=== PATIENT | female | born 1995 | race Caucasian/White ===

== ENCOUNTER 2022-06-27 18:11 | Inpatient (IN) ==
--- NOTE | 2022-06-27 18:52 | History & Physical Report ---
Date of Service June 27, 2022 Assessment & Plan (1) 39 weeks gestation of : (2) Gestational hypertension: (3) Obesity complicating : (4) Unfavorable cervix in term : Plan admit, iv, labs. shaver ripening balloon and start pitocin. fhts categ 1. lfts noted, repeat in 6hr about 2am. other labs reviewed, urine prot/cr ratio pending. pt and partner aware of dx and recommendations to move toward delivery. they agree and deny ?s. History of Present Illness Chief Complaint: repeat bp check Primary Care Provider: NO PCP 26yo at 39 6/7 wks yoshi presents to L&D for planned repeat bp about 4-6hr from office bp that was elevated. She denies complaints, no storm, visual change, no ruq pain, no epig pain. No worsening swelling. PNC c/b 1. obesity PNL rhpos, ri, gbs neg Allergies Allergy/AdvReac Type Severity Reaction Status Date / Time No Known Allergies Allergy Verified 06/27/22 11:23 Home Medications Medication Instructions Recorded Confirmed Type multivitamin 1 tab PO DAILY 08/01/21 06/27/22 History Patient History Medical History (Updated 06/27/22 @ 21:21 by Rosanne Gillespie MD, FACOG) No pertinent past medical history SAB (spontaneous ) Varicella vaccination Surgical History No pertinent past surgical history Family History (Updated 11/18/21 @ 09:58 by Haleigh Song) Father Hypertension Denies family history of Ovarian cancer Clotting disorder Breast cancer Colorectal cancer Uterine cancer Social History (Updated 11/18/21 @ 09:56 by Haleigh Song) Smoking Status: Never smoker Second Hand Exposure: No; Hx Alcohol Use: No Hx Substance Use: No Preferred Language: [employer] Required: No Beliefs That Will Affect Care: None marital status: marital status details: Jorden Smith (26) [phone] Current Living Situation: Spouse Current Living Situation Comment: lives with spouse, dogs current occupational status: employed 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[employer] Other Information That Helps Us Care for You: No Feels Safe at Home: Yes Safety Concerns: Feels Safe At This Time Assistive Devices: None Review of Systems as per Subjective / HPI Physical Exam Constitutional: WD/WN, vitals as above Respiratory: normal respiratory effort, lungs clear to auscultation Cardiovascular: Rate/Rhythm: regular rate and regular rhythm Gastrointestinal (Abdomen): soft gravid nt efw 8-9# Musculoskeletal: no edema nontender calves Neurologic: grossly normal Psychiatric: A+Ox3, euthymic affect Genitourinary: Manual OB Exam: + cervical dilation (1), + cervical effacement 50% and + station + 2 OB Exam Monitor Tracing: + external FHT monitor used, + external uterine monitor used, + category I and + normal FHT variability PROCEDURE: sse cx visualized, grasped on ant lip with ring forcep, shaver through os and balloon inflated with 40cc sterile water. Spec removed, shaver taped to leg. pt amy well. Results & Data ([facility]) Vital Signs (Past 12 Hours) Vital Signs Pulse BP 06/27/22 18:18 105 H 154/76 H Coding Level of Care Code None Diagnoses 39 weeks gestation of Z3A.39 Gestational hypertension O13.9 Obesity complicating O99.210 Unfavorable cervix in term O34.40 CPT Codes Misx Procedure Codes - 95939 Placement of cervical dilator: 22810 Placement of cervical dilator ([id number])
[2022-06-27 20:02] LABS: Basophils # (auto) 0.02 K/uL (0-0.2); Basophils % (auto) 0.2 %; Eosinophils # (auto) 0.08 K/uL (0-0.50); Eosinophils % (auto) 0.7 %; Hematocrit (blood only) 37.5 % (34.1-44.9); Immature Granulocytes # (auto) 0.03 K/uL (0.00-0.02); Immature Granulocytes % (auto) 0.3 %; Lymphocytes # (auto) 2.12 K/uL (1.2-3.4); Lymphocytes % (auto) 18.4 %; Mean Corpuscular Hemoglobin 31.5 pg (25.0-34.0); Mean Corpuscular Hgb Conc 34.7 g/dL (32.0-36.0); Mean Corpuscular Volume 90.8 fL (80.0-100.0); Mean Platelet Volume 11.1 fL (9.4-12.3); Monocytes # (auto) 0.67 K/uL (0.24-0.82); Monocytes % (auto) 5.8 %; Neutrophils % (auto) 74.6 %; Platelet Count 296 K/uL (130-400); RDW Coefficient of Variation 12.5 % (11.5-14.5); RDW Standard Deviation 41.2 fL (36.4-46.3); Red Blood Count 4.13 M/uL (3.93-5.22); White Blood Count 11.52 K/ul (4.8-10.8)
[2022-06-27 20:26] LABS: Albumin Globulin Ratio 0.8 (0.9-2); Albumin Level 3.2 gm/dl (3.4-5.0); BUN Creatinine Ratio 13.5 (10-20); Bilirubin,Total 0.4 mg/dl (0.2-1.0); Calcium 9.5 mg/dl (8.5-10.1); Creatinine Clr Calc Pharmacy 153.7 ml/min; Est GFR (African American) 128.7 ml/min; Potassium 3.7 mmol/L (3.5-5.1); Total Protein 7.2 gm/dl (6.0-8.3)
[2022-06-27] MEDS ORDERED: OXYTOCIN 30 UNITS/500 ML BAG IV PRN ×2 (20:36→20:37)
[2022-06-27] MEDS ORDERED: LIDOCAINE 1% LOCAL 20 ML VIAL INFIL PRN (20:36)
[2022-06-27] MEDS: LACTATED RINGER'S 1,000 ML IV PRN (21:23)
[2022-06-27 21:26] LABS: Creatinine Urine Random 176.6 mg/dl; Protein Creatinine Ratio Urine 0.1 (0-0.2); Total Protein Urine Random 16.1 mg/dl (0-11.9)
[2022-06-28 02:02] LABS: Albumin Level 3.4 gm/dl (3.4-5.0); Bilirubin Direct 0.1 mg/dl (0-0.2); Bilirubin,Total 0.4 mg/dl (0.2-1.0); Total Protein 7.1 gm/dl (6.0-8.3)
[2022-06-28 03:45] LABS: Albumin Level 3.2 gm/dl (3.4-5.0); Bilirubin Direct 0.1 mg/dl (0-0.2); Bilirubin,Total 0.5 mg/dl (0.2-1.0); Total Protein 6.9 gm/dl (6.0-8.3)
[2022-06-28] MEDS: LACTATED RINGER'S 1,000 ML IV PRN ×2 (06:14→09:50)
--- NOTE | 2022-06-28 08:23 | Labor Progress Brief Note ---
Date of Service June 28, 2022 On Pitocin for induction for hypertension artificial rupture of membranes this morning for clear fluid 3 to 4 cm patient tolerated well follow-up closely Assessment & Plan Admission and Anticipated Discharge Date Admission Date: June 27, 2022 Results & Data ([facility]) Vital Signs (Past 12 Hours) Vital Signs Temp Pulse Resp BP 06/28/22 07:23 97.9 F 20 06/28/22 08:14 81 136/87 06/28/22 07:44 79 118/84 06/28/22 07:16 91 H 118/84 06/28/22 06:44 88 132/87 06/28/22 06:14 97 H 131/85 06/28/22 05:44 85 131/79 06/28/22 05:15 68 131/81 06/28/22 04:45 86 130/87 06/28/22 04:14 80 133/79 06/28/22 03:45 83 125/80 06/28/22 03:14 93 H 130/87 06/28/22 03:00 18 06/28/22 03:00 97.9 F 18 06/28/22 02:44 92 H 135/87 06/28/22 02:14 78 132/82 06/28/22 01:44 68 139/86 06/28/22 01:14 86 134/87 06/28/22 00:44 86 124/84 06/28/22 00:14 81 127/80 06/27/22 23:44 94 H 134/91 06/27/22 23:14 97.9 F 90 18 132/82 06/27/22 22:44 87 128/77 06/27/22 22:15 101 H 126/80 06/27/22 21:44 90 134/81 06/27/22 21:14 92 H 135/90 06/27/22 20:34 104 H 122/87 Coding Level of Care Code None
[2022-06-28] MEDS ORDERED: ePHEDrine sulfate 50 MG/ML AMP ONE ×2 (09:11→13:22)
[2022-06-28] MEDS ORDERED: SODIUM CHLORIDE 0.9% INJ 10 ML VIAL ONE (09:12)
[2022-06-28] MEDS ORDERED: LIDOCAINE 2%/EPINEPHRINE 1:200,000 20 ML SDV ONE (09:12)
[2022-06-28] MEDS ORDERED: fentaNYL citrate 100 MCG/2 ML VIAL ONE (09:12)
[2022-06-28] MEDS ORDERED: BUPIVACAINE 0.25% 30 ML VIAL ONE (09:12)
[2022-06-28] MEDS ORDERED: fentaNYL 2MCG/ML ROPIVACAINE 1.25MG/ML 100 ML BAG EPI ONE (09:13)
[2022-06-28] MEDS ORDERED: NALOXONE HCL 0.4 MG/1 ML VIAL/CARP IV PRN ×2 (10:47→17:12)
[2022-06-28] MEDS ORDERED: NALBUPHINE HCL INJ 10 MG/ML AMP IV PRN ×2 (10:47→17:12)
[2022-06-28] MEDS ORDERED: NALOXONE HCL 1 MG in SODIUM CHLORIDE 0.9% 1000ML 1,000 ML IV PRN ×2 (10:47→17:12)
[2022-06-28] MEDS ORDERED: diphenhydrAMINE 50 MG/ML VIAL IV PRN ×3 (10:47→17:12)
[2022-06-28] MEDS ORDERED: ePHEDrine sulfate 50 MG/ML AMP IV PRN ×2 (10:47→17:12)
[2022-06-28] MEDS ORDERED: PROMETHAZINE HCL 25 MG in SODIUM CHLORIDE 0.9% 50 ML IV PRN ×3 (10:47→17:12)
[2022-06-28] MEDS ORDERED: ONDANSETRON INJ 2 MG/ML 2 ML VIAL IV PRN ×3 (10:47→17:12)
--- NOTE | 2022-06-28 10:47 | Anesthesiology Consultation ---
Date of Service June 28, 2022 Assessment & Plan Chart Review Chart Review: Patient NOT seen in Pre Admission Testing and Acceptable Risk for Labor Epidural Consults Requested none ASA ASA2 Proposed Anesthesia Anesthesia Type: Labor Epidural Risk / Benefits Reviewed With: PT / POA / Parent / Guardian, Accepts Plan and Informed Consent Obtained History Height/Weight Height: 5 ft 4 in Weight: 131.088 kg Allergies Allergy/AdvReac Type Severity Reaction Status Date / Time No Known Allergies Allergy Verified 06/27/22 11:23 Medications Home Medications Medication Instructions Recorded Confirmed Last Taken multivitamin 1 tab PO DAILY 08/01/21 06/27/22 06/26/22 Active Medications Generic Name Dose Route Start Last Admin Trade Name Freq PRN Reason Stop Dose Admin Lactated Ringer's 1,000 mls @ 125 mls/hr 06/27/22 20:36 06/28/22 09:51 Lr IV 06/29/22 20:35 125 mls/hr .Q8H PRN Infusion L&D Protocol Protocol Oxytocin 30 units in 500 mls @ 13 mls/hr 06/27/22 20:37 06/28/22 10:20 Pitocin IV 06/29/22 20:36 0.78 units/hr .Q24H PRN 13 mls/hr Labor Induction/Augmentation Titration Protocol 0.78 UNITS/HR NPO Date Last Intake of Fluids: 06/27/22 Time Last Intake of Fluids: 22:00 Date Last Intake of Solids: 06/27/22 Time Last Intake of Solids: 22:00 Past Medical History Medical History (Updated 06/27/22 @ 21:21 by Rosanne Gillespie MD, FACOG) No pertinent past medical history SAB (spontaneous ) Varicella vaccination Exercise / Class Metabolic Activity II 4-5 Yardwork/Stairs/Walk up hill Past Family History Family History (Updated 11/18/21 @ 09:58 by Haleigh Song) Father Hypertension Denies family history of Ovarian cancer Clotting disorder Breast cancer Colorectal cancer Uterine cancer Past Surgical History Surgical History No pertinent past surgical history Past Anesthesia History No Hx of Anesthesia Complications and No Family Hx of Anesthesia Complications History of PONV No Hx of PONV and No Hx of Motion Sickness Social History Smoking Status: Never smoker Hx Alcohol Use: No Hx Substance Use: No substance use type: does not use Review of Systems Constitutional: as per Subjective / HPI Ear, Nose, Mouth, Throat: as per Subjective / HPI Cardiovascular: as per Subjective / HPI Gastrointestinal: as per Subjective / HPI Genitourinary (Female): as per Subjective / HPI Musculoskeletal: as per Subjective / HPI Integumentary: as per Subjective / HPI Neurologic: as per Subjective / HPI Psychiatric: as per Subjective / HPI Endocrine: as per Subjective / HPI Hematologic / Lymphatic: as per Subjective / HPI Allergy / Immunological: as per Subjective / HPI Physical Exam Vital Signs Last Vital Signs Temp 36.6 C 06/28/22 07:23 Pulse 103 H 06/28/22 10:39 Resp 20 06/28/22 07:23 BP 123/82 06/28/22 10:39 Pulse Ox 96 06/28/22 10:39 Constitutional + acute distress (labor pain) ENMT Mouth: no TMJ abnormality Thyromental Distance: > or= 3.5 Finger Breadths Mallampati Class: II Neck normal visual inspection Respiratory normal respiratory effort Cardiovascular Rate/Rhythm: regular rhythm and + tachycardic Musculoskeletal Spine: normal cervical ROM Neurologic moves all extremities Psychiatric Orientation: alert and oriented x 3 Testing Laboratory Results 06/27/22 19:49 06/27/22 19:49 Blood Type AB Positive 06/27/22 19:49 Antibody Screen NEGATIVE 06/27/22 19:49
--- NOTE | 2022-06-28 11:57 | Obstetrical Progress Note ---
Date of Service June 28, 2022 Recurrent late D cells on Pitocin we have been trying various measures including repositioning and a small fluid bolus her pressures are low. An IUPC has been placed and contractions are definitely adequate her cervix is 4 cm 90% -2 we will follow closely discussed with the patient and her partner the possibility of delivery and what this would entail if the recurrent D cells do not improve Assessment & Plan Admission and Anticipated Discharge Date Admission Date: June 27, 2022 Results & Data ([facility]) Vital Signs (Past 12 Hours) Vital Signs Temp Pulse Resp BP Pulse Ox 06/28/22 11:30 98.8 F 06/28/22 09:30 98.2 F 06/28/22 07:23 97.9 F 20 06/28/22 11:54 89 127/77 99 06/28/22 11:49 93 H 100 06/28/22 11:48 91 H 91 06/28/22 11:44 62 96 06/28/22 11:42 61 96/51 L 06/28/22 11:39 61 97 06/28/22 11:34 60 97 06/28/22 11:29 63 98 06/28/22 11:10 20 06/28/22 11:10 20 06/28/22 10:10 20 06/28/22 10:10 20 06/28/22 10:25 20 06/28/22 10:25 20 06/28/22 10:40 20 06/28/22 10:40 20 06/28/22 11:24 60 93/55 L 97 06/28/22 11:19 61 98 06/28/22 11:14 64 98 06/28/22 11:09 99 06/28/22 11:09 71 06/28/22 11:09 69 105/59 L 06/28/22 11:04 75 97 06/28/22 10:59 82 95 06/28/22 10:55 95 H 20 94 06/28/22 10:54 92 H 118/70 97 06/28/22 10:49 96 06/28/22 10:49 77 06/28/22 10:49 101 H 94 06/28/22 10:44 84 96 06/28/22 10:39 103 H 123/82 96 06/28/22 10:34 96 H 99 06/28/22 10:29 80 98 06/28/22 10:24 86 98 06/28/22 10:23 90 124/76 06/28/22 10:19 97 H 99 06/28/22 10:16 80 131/73 06/28/22 10:14 81 133/75 99 06/28/22 10:12 92 H 128/67 06/28/22 10:11 105 H 126/67 06/28/22 10:09 86 97 06/28/22 10:08 86 127/74 06/28/22 10:07 81 127/77 06/28/22 10:04 82 136/89 100 06/28/22 09:59 84 98 06/28/22 10:00 82 128/82 06/28/22 09:52 83 150/92 H 06/28/22 09:45 75 124/70 06/28/22 09:14 68 124/67 06/28/22 08:44 90 128/83 06/28/22 08:14 81 136/87 06/28/22 07:44 79 118/84 06/28/22 07:16 91 H 118/84 06/28/22 06:44 88 132/87 06/28/22 06:14 97 H 131/85 06/28/22 05:44 85 131/79 06/28/22 05:15 68 131/81 06/28/22 04:45 86 130/87 06/28/22 04:14 80 133/79 06/28/22 03:45 83 125/80 06/28/22 03:14 93 H 130/87 06/28/22 03:00 18 06/28/22 03:00 97.9 F 18 06/28/22 02:44 92 H 135/87 06/28/22 02:14 78 132/82 06/28/22 01:44 68 139/86 06/28/22 01:14 86 134/87 06/28/22 00:44 86 124/84 06/28/22 00:14 81 127/80 PG Care Time/CCT Total # of Minutes Spent Total Time Spent with Patient: Total time spent is greater than 50% in coordination of care (as documented) at patient's floor/unit and/or counseling patient: Coding Level of Care Code None
--- NOTE | 2022-06-28 12:25 | Labor Progress Brief Note ---
Date of Service June 28, 2022 Recurrent late decelerations despite maneuvers to alleviate including placement of IUPC to optimize contractions position changes and small fluid boluses at this stage the patient is still 4 cm I have advised recommendation for due to the recurrent late decelerations discussed the timing of the cells may reflect some placental dysfunction discussed we could continue to try however I am somewhat worried with the lack of progress and additionally the tracing being nonoptimal the patient and her partner agree with as the best plan of action I discussed the increased risk of infection if she is in labor or other risk discussed as well section. The patient was counseled to the nature of the procedure including alternatives such as labor. Risks were discussed including bleeding infection injury to bowel bladder ureter vessels and even baby. Deep Vein thrombosis, pulmonary embolus discussed. B reakdown of incision reviewed. Deep vein thrombosis pulmonary embolus hernia and failure of the incision to heal were discussed Patient verbalized understanding of this and was given ample time to ask questions Assessment & Plan Admission and Anticipated Discharge Date Admission Date: June 27, 2022 Results & Data ([facility]) Vital Signs (Past 12 Hours) Vital Signs Temp Pulse Resp BP Pulse Ox 06/28/22 11:30 98.8 F 06/28/22 09:30 98.2 F 06/28/22 07:23 97.9 F 20 06/28/22 12:20 89 93 06/28/22 12:19 86 100 06/28/22 12:14 71 100 06/28/22 12:09 68 99 06/28/22 12:10 73 123/76 06/28/22 12:04 72 100 06/28/22 11:59 80 97 06/28/22 11:40 20 06/28/22 11:40 20 06/28/22 11:25 20 06/28/22 11:25 20 06/28/22 11:54 89 127/77 99 06/28/22 11:49 93 H 100 06/28/22 11:48 91 H 91 06/28/22 11:44 62 96 06/28/22 11:42 61 96/51 L 06/28/22 11:39 61 97 06/28/22 11:34 60 97 06/28/22 11:29 63 98 06/28/22 11:10 20 06/28/22 11:10 20 06/28/22 10:10 20 06/28/22 10:10 20 06/28/22 10:25 20 06/28/22 10:25 20 06/28/22 10:40 20 06/28/22 10:40 20 06/28/22 11:24 60 93/55 L 97 06/28/22 11:19 61 98 06/28/22 11:14 64 98 06/28/22 11:09 99 06/28/22 11:09 71 06/28/22 11:09 69 105/59 L 06/28/22 11:04 75 97 06/28/22 10:59 82 95 06/28/22 10:55 95 H 20 94 06/28/22 10:54 92 H 118/70 97 06/28/22 10:49 96 06/28/22 10:49 77 06/28/22 10:49 101 H 94 06/28/22 10:44 84 96 06/28/22 10:39 103 H 123/82 96 06/28/22 10:34 96 H 99 06/28/22 10:29 80 98 06/28/22 10:24 86 98 06/28/22 10:23 90 124/76 06/28/22 10:19 97 H 99 06/28/22 10:16 80 131/73 06/28/22 10:14 81 133/75 99 06/28/22 10:12 92 H 128/67 06/28/22 10:11 105 H 126/67 06/28/22 10:09 86 97 06/28/22 10:08 86 127/74 06/28/22 10:07 81 127/77 06/28/22 10:04 82 136/89 100 06/28/22 09:59 84 98 06/28/22 10:00 82 128/82 06/28/22 09:52 83 150/92 H 06/28/22 09:45 75 124/70 06/28/22 09:14 68 124/67 06/28/22 08:44 90 128/83 06/28/22 08:14 81 136/87 06/28/22 07:44 79 118/84 06/28/22 07:16 91 H 118/84 06/28/22 06:44 88 132/87 06/28/22 06:14 97 H 131/85 06/28/22 05:44 85 131/79 06/28/22 05:15 68 131/81 06/28/22 04:45 86 130/87 06/28/22 04:14 80 133/79 06/28/22 03:45 83 125/80 06/28/22 03:14 93 H 130/87 06/28/22 03:00 18 06/28/22 03:00 97.9 F 18 06/28/22 02:44 92 H 135/87 06/28/22 02:14 78 132/82 06/28/22 01:44 68 139/86 06/28/22 01:14 86 134/87 06/28/22 00:44 86 124/84 Coding Level of Care Code None
[2022-06-28] MEDS ORDERED: CITRIC ACID/SODIUM CITRATE 15 ML UDC PO STA (12:38)
[2022-06-28] MEDS ORDERED: MoRPHine SULFATE PF 1 MG/ML 10 ML AMP/VIAL ONE (13:22)
[2022-06-28] MEDS ORDERED: ONDANSETRON INJ 2 MG/ML 2 ML VIAL ONE ×2 (13:22→13:47)
[2022-06-28] MEDS ORDERED: PHENYLEPHRINE 100MCG/ML 5ML SYR ONE (13:50)
--- NOTE | 2022-06-28 14:07 | Operative Report ---
PG Post Operative Report Pre & Post Diagnosis Operation Date: 06/28/22 13:00 Post-Op Diagnosis: Same: Delivery of live I identified the patient and participated in the time-out.: Yes Procedure Operation Date: 06/28/22 13:00 <No data on this case meets the specified criteria> Surgeon Desiree Farah MD, FACOG Crusher [employer] Equipment Operator Dr. Gillespie Estimated Blood Loss 600 Findings Consistent with Post-Op Diagnosis Specimens Cord blood cord gases Description of Procedure Regional anesthetic had been given by anesthesia patient was prepped and draped with a leftward tilt preoperative antibiotics had been given in appropriate timing by anesthesiology. Once the prep was allowed to fully dry timeout was performed. Pickups with teeth were used to test the incision area was found to be adequate for incision as the patient did not feel sharp pain. Scalpel was used to make a Pfannenstiel incision on the lower abdomen. We then cut through the subcutaneous fat down to the level of the anterior rectus sheath fascia this was cut in the midline and then extended laterally with the curved Faulkner scissors. At this stage we then placed 2 Brenden clamps on the anterior aspect of the fascia. Using the curved Faulkner's we are able to dissect the fascia superiorly away from the rectus muscles. Care was taken to maintain hemostasis. Brenden clamps were then placed to the inferior aspect of the anterior sheath of the fascia. Fascia was then dissected away from the rectus muscles inferiorly towards the pubic bone. A Brenden was then placed in the midline both inferiorly and superiorly. This was to allow exposure by retraction rectus muscles were in the midline with were then able to cut through the peritoneum and then enter the peritoneal cavity. Opening was enlarged to allow exposure of the peritoneal cavity both superiorly and inferiorly. Once adequate space was obtained a bladder retractor was placed to expose the lower segment Metzenbaums were used to dissect the bladder flap inferiorly away from the uterus. This was done sharply bladder retractor was then repositioned to expose the lower segment of the uterus Fresh scalpel was used to make a low transverse incision on the uterus. Uterus was then entered bluntly with the operators finger, membranes ruptured and the opening was enlarged using the operators fingers bluntly pulling superiorly and inferiorly to allow exposure. Baby was delivered by first flexion of the head elevation of the head out of the pelvis and then pressure by the contact lens assistant on the maternal abdomen. Baby's head was then delivered mouth and then nares were suctioned and then using gentle traction the baby was fully delivered. Live vigorous infant. Fluid was clear cord clamped and cut cord gases obtained cord blood obtained baby handed to pediatrics. Placenta removed was removed with traction we ensure the entire placenta was removed with a moist lap sponge into the uterus Uterus was then exteriorized. IV Pitocin had been started by anesthesia tone improved there were no extensions the uterus was then closed using 0 Monocryl in a 2 layer closure the first layer closed in a running locked fashion from left to right and then a second closure from left to right in a running nonlocked fashion. At this stage hemostasis was excellent. Uterus was placed back in the peritoneal cavity with suction irrigation out and inspection of the uterus at this stage revealed excellent hemostasis. It should be noted I put a [id number] in the left angle of the incision as it was some oozing and this improved it as well as a [id number]-fo-[id number] in the central part of the incision after these suture placements hemostasis was excellent Retractors were removed urine color was clear at this stage of the case we inspected the rectus muscles they were hemostatic fascia was closed with 0 Vicryl subcutaneous fat was irrigated and closed with 3-0 Vicryl skin closed with 4-0 subcuticular Monocryl I attest to the content of the Intraoperative Record and any orders documented therein. Any exceptions are noted below. OB Procedure Charges 81664
[2022-06-28] MEDS ORDERED: BENZOCAINE 20% AER SPR 82.5 GM CAN EXT PRN (14:53)
[2022-06-28] MEDS ORDERED: KETOROLAC 30 MG/ML VIAL IV PRN ×2 (14:53→17:12)
[2022-06-28] MEDS ORDERED: HYDROCORTISONE ACETATE 25 MG SUPP PR PRN (14:53)
[2022-06-28] MEDS ORDERED: DIPHTHERIA/TETANUS/PERTUSSIS 0.5 ML SYR/VIAL IM ONE (14:53)
[2022-06-28] MEDS ORDERED: SENNA 8.6 MG TAB PO PRN (14:53)
[2022-06-28] MEDS ORDERED: LACTATED RINGER'S 1,000 ML IV SCH (14:53)
[2022-06-28] MEDS ORDERED: MAGNESIUM HYDROXIDE SUSP 30 ML UDC PO PRN (14:53)
[2022-06-28] MEDS ORDERED: diphenhydrAMINE Capsule 25 MG CAP PO PRN ×2 (14:53→17:12)
--- NOTE | 2022-06-28 15:10 | Anesthesiology Progress Note ---
Date of Service June 28, 2022 Anesthesia Post Procedure Vital Signs Vital Signs: Temp Pulse Resp BP Pulse Ox 06/28/22 14:32 20 06/28/22 14:22 36.4 C L 20 06/28/22 12:55 20 06/28/22 12:40 20 06/28/22 12:25 20 06/28/22 12:10 20 06/28/22 11:55 20 06/28/22 11:30 37.1 C 06/28/22 09:30 36.8 C 06/28/22 07:23 36.6 C 20 06/27/22 19:14 36.9 C 85 18 158/93 H 06/28/22 15:05 102 H 98 06/28/22 15:02 100 H 124/60 06/28/22 15:00 99 H 98 06/28/22 14:55 89 100 06/28/22 14:50 94 H 99 06/28/22 14:45 94 H 99 06/28/22 14:44 88 121/68 06/28/22 14:40 89 98 06/28/22 14:35 84 98 06/28/22 14:33 88 114/53 L 06/28/22 14:30 79 97 06/28/22 14:25 81 98 06/28/22 14:22 82 111/52 L 06/28/22 14:20 75 97 06/28/22 13:09 82 99 06/28/22 13:10 94 H 131/78 06/28/22 13:04 84 99 06/28/22 12:59 78 98 06/28/22 12:55 102 H 134/84 06/28/22 12:54 101 H 96 06/28/22 12:49 88 100 06/28/22 12:44 72 100 06/28/22 12:39 73 99 06/28/22 12:40 81 128/82 06/28/22 12:34 71 100 06/28/22 12:29 82 98 06/28/22 12:25 74 116/66 06/28/22 12:24 70 99 06/28/22 12:20 89 93 06/28/22 12:19 86 100 06/28/22 12:14 71 100 06/28/22 12:09 68 99 06/28/22 12:10 73 123/76 06/28/22 12:04 72 100 06/28/22 11:59 80 97 06/28/22 11:40 20 06/28/22 11:40 20 06/28/22 11:25 20 06/28/22 11:25 20 06/28/22 11:54 89 127/77 99 06/28/22 11:49 93 H 100 06/28/22 11:48 91 H 91 06/28/22 11:44 62 96 06/28/22 11:42 61 96/51 L 06/28/22 11:39 61 97 06/28/22 11:34 60 97 06/28/22 11:29 63 98 06/28/22 11:10 20 06/28/22 11:10 20 06/28/22 10:10 20 06/28/22 10:10 20 06/28/22 10:25 20 06/28/22 10:25 20 06/28/22 10:40 20 06/28/22 10:40 20 06/28/22 11:24 60 93/55 L 97 06/28/22 11:19 61 98 06/28/22 11:14 64 98 06/28/22 11:09 99 06/28/22 11:09 71 06/28/22 11:09 69 105/59 L 06/28/22 11:04 75 97 06/28/22 10:59 82 95 06/28/22 10:55 95 H 20 94 06/28/22 10:54 92 H 118/70 97 06/28/22 10:49 96 06/28/22 10:49 77 06/28/22 10:49 101 H 94 06/28/22 10:44 84 96 06/28/22 10:39 103 H 123/82 96 06/28/22 10:34 96 H 99 06/28/22 10:29 80 98 06/28/22 10:24 86 98 06/28/22 10:23 90 124/76 06/28/22 10:19 97 H 99 06/28/22 10:16 80 131/73 06/28/22 10:14 81 133/75 99 06/28/22 10:12 92 H 128/67 06/28/22 10:11 105 H 126/67 06/28/22 10:09 86 97 06/28/22 10:08 86 127/74 06/28/22 10:07 81 127/77 06/28/22 10:04 82 136/89 100 06/28/22 09:59 84 98 06/28/22 10:00 82 128/82 06/28/22 09:52 83 150/92 H 06/28/22 09:45 75 124/70 06/28/22 09:14 68 124/67 06/28/22 08:44 90 128/83 06/28/22 08:14 81 136/87 06/28/22 07:44 79 118/84 06/28/22 07:16 91 H 118/84 06/28/22 06:44 88 132/87 06/28/22 06:14 97 H 131/85 06/28/22 05:44 85 131/79 06/28/22 05:15 68 131/81 06/28/22 04:45 86 130/87 06/28/22 04:14 80 133/79 06/28/22 03:45 83 125/80 06/28/22 03:14 93 H 130/87 06/28/22 03:00 18 06/28/22 03:00 36.6 C 18 06/28/22 02:44 92 H 135/87 06/28/22 02:14 78 132/82 06/28/22 01:44 68 139/86 06/28/22 01:14 86 134/87 06/28/22 00:44 86 124/84 06/28/22 00:14 81 127/80 06/27/22 23:44 94 H 134/91 06/27/22 23:14 36.6 C 90 18 132/82 06/27/22 22:44 87 128/77 06/27/22 22:15 101 H 126/80 06/27/22 21:44 90 134/81 06/27/22 21:14 92 H 135/90 06/27/22 20:34 104 H 122/87 06/27/22 20:19 96 H 131/86 06/27/22 20:04 96 H 135/81 06/27/22 19:49 101 H 130/88 06/27/22 19:34 106 H 134/80 06/27/22 19:06 36.9 C 85 18 158/93 H 06/27/22 18:49 100 H 133/86 06/27/22 18:18 105 H 154/76 H Pain Intensity Bilateral Abdomen: Pain Intensity: 1 Transfer of Care Handoff Completed per policy Notes Mental Status: alert / awake / arousable and participated in evaluation Nausea / Vomiting: adequately controlled Pain: adequately controlled Airway Patency, RR, SpO2: stable & adequate BP & HR: stable & adequate Hydration State: stable & adequate Neuraxial Anesthesia: was administered and sensory block is resolving Anesthetic Complications: no major complications apparent and Pt Satisfied with anesthetic care
--- NOTE | 2022-06-28 15:13 | Anesthesia Procedure Note ---
Date of Service June 28, 2022 Anesthesia Post Epidural Note Vital Signs Vital Signs: Temp Pulse Resp BP Pulse Ox 36.4 C L 93 H 20 124/60 98 06/28/22 14:22 06/28/22 15:10 06/28/22 14:32 06/28/22 15:02 06/28/22 15:10 Pain Intensity Bilateral Abdomen: Pain Intensity: 1 Notes Mental Status: alert / awake / arousable Nausea / Vomiting: adequately controlled Pain: adequately controlled Airway Patency, RR, SpO2: stable & adequate BP & HR: stable & adequate Hydration State: stable & adequate Neuraxial Anesthesia: was administered and sensory block is resolving Anesthetic Complications: no major complications apparent and Pt Satisfied with anesthetic care Epidural: Removed without complications and With tip intact
[2022-06-28] MEDS: OXYTOCIN 20 UNITS in LACTATED RINGER'S 1,000 ML IV SCH (16:54)
[2022-06-28] MEDS ORDERED: NALOXONE HCL 0.08 MG in SYRINGE 1.8 ML IV PRN (17:12)
[2022-06-28] MEDS ORDERED: LACTATED RINGER'S 500 ML IV PRN (17:12)
[2022-06-28] MEDS ORDERED: HYDROmorphone INJ 0.5 MG/0.5 ML SYR IV PRN (17:12)
[2022-06-28] MEDS ORDERED: MEPERIDINE HCL 25 MG/ML CARP/VIAL IV PRN (17:12)
[2022-06-28] MEDS ORDERED: MoRPHine SULFATE PF 1 MG/ML 10 ML AMP/VIAL INT SPINAL ONE (17:12)
[2022-06-28] MEDS ORDERED: SODIUM CHLORIDE 0.9% 1000ML 1,000 ML IV SCH (17:15)
[2022-06-28] MEDS ORDERED: NO NARCOTICS OR SEDATIVES SCH (17:15)
[2022-06-28] MEDS ORDERED: DC INTRASPINAL MORPHINE SCH (17:15)
[2022-06-28 19:52] LABS: Base Excess Cord Venous Blood -0.4 mEq/L (-7.7-1.9); Cord Venous Blood HCO3 26 mmol/L (18.4-26.8); Cord Venous Blood PCO2 48 mmHg (30.4-57.2); Cord Venous Blood PO2 21 mmHg (14.1-43.3); Cord Venous Blood pH 7.34 (7.20-7.44); O2 Saturation Cord Venous Bld < 60.0 % (<68)
[2022-06-28 19:55] LABS: Base Excess Cord Arterial Bld -0.3 mEq/L (-9-1.8); CO2 Cord Arterial Blood 61 mmHg (39.1-73.5); HCO3 Cord Arterial Blood 28 mmol/L (19.7-28.5); Oxygen Sat Cord Arterial Blood < 60.0 % (<60); PO2 Cord Arterial Blood 6 mmHg (4.1-31.7); pH Cord Arterial Blood 7.27 (7.1-7.38)
[2022-06-28] MEDS: SIMETHICONE 80 MG CHEW PO SCH (20:45)
[2022-06-28] MEDS: DOCUSATE SODIUM 100 MG CAP PO SCH (20:45)
[2022-06-29] MEDS: OXYTOCIN 20 UNITS in LACTATED RINGER'S 1,000 ML IV SCH (01:09)
[2022-06-29 06:42] LABS: Basophils # (auto) 0.05 K/uL (0-0.2); Basophils % (auto) 0.4 %; Eosinophils # (auto) 0.04 K/uL (0-0.50); Eosinophils % (auto) 0.3 %; Hematocrit (blood only) 31.1 % (34.1-44.9); Hemoglobin 10.6 g/dl (12.0-16.0); Immature Granulocytes # (auto) 0.07 K/uL (0.00-0.02); Immature Granulocytes % (auto) 0.5 %; Lymphocytes # (auto) 2.64 K/uL (1.2-3.4); Lymphocytes % (auto) 19.6 %; Mean Corpuscular Hemoglobin 31.5 pg (25.0-34.0); Mean Corpuscular Hgb Conc 34.1 g/dL (32.0-36.0); Mean Corpuscular Volume 92.3 fL (80.0-100.0); Mean Platelet Volume 11.2 fL (9.4-12.3); Monocytes # (auto) 0.82 K/uL (0.24-0.82); Monocytes % (auto) 6.1 %; Neutrophils # (auto) 9.82 K/uL (1.4-6.5); Neutrophils % (auto) 73.1 %; Platelet Count 227 K/uL (130-400); RDW Coefficient of Variation 12.7 % (11.5-14.5); RDW Standard Deviation 42.5 fL (36.4-46.3); Red Blood Count 3.37 M/uL (3.93-5.22); White Blood Count 13.44 K/ul (4.8-10.8)
[2022-06-29] MEDS: SIMETHICONE 80 MG CHEW PO SCH ×5 (07:22→21:04)
--- NOTE | 2022-06-29 08:28 | Obstetrical Progress Note ---
Date of Service June 29, 2022 Assessment & Plan (1) Gestational hypertension: Postop day #1 her blood pressures are stable her platelets are stable her hemoglobin is stable the patient is ambulating and she is doing well incision is examined is clear dry and intact she has no extremity pain we will continue current care Subjective Ambulation: ambulating normally Voiding: no voiding problems Passing Gas:: Yes Diet Tolerance:: regular diet Constitutional: + as per Subjective / HPI Physical Exam Constitutional WD/WN, vitals as above well developed and well nourished Respiratory normal respiratory effort, lungs clear to auscultation normal respiratory effort Cardiovascular RRR, no murmur, no edema Gastrointestinal (Abdomen) normal bowel sounds, soft, nontender, no hepatosplenomegaly Results & Data ([facility]) Vital Signs (Past 12 Hours) Vital Signs Temp Pulse Resp BP Pulse Ox O2 Del Method 06/29/22 06:20 18 96 06/29/22 05:20 18 96 06/29/22 04:00 18 98 06/29/22 03:15 18 96 06/29/22 04:00 98.2 F 80 18 109/65 98 Room Air 06/29/22 02:10 18 94 06/29/22 01:20 18 98 06/29/22 00:10 18 99 06/28/22 23:30 96 H 06/29/22 00:10 98.6 F 77 18 105/70 99 Room Air 06/28/22 22:20 18 93 06/28/22 21:25 18 96
[2022-06-29] MEDS: FERROUS SULFATE 325 MG TAB PO SCH (08:58)
[2022-06-29] MEDS: PRENATAL VITAMIN 1 TAB PO SCH (08:58)
[2022-06-29] MEDS: DOCUSATE SODIUM 100 MG CAP PO SCH ×2 (08:58→21:04)
[2022-06-29] MEDS: IBUPROFEN 600 MG TAB PO PRN ×2 (10:33→17:14)
[2022-06-29] MEDS ORDERED: diphenhydrAMINE 50 MG/ML VIAL IV PRN (11:14)
[2022-06-29] MEDS ORDERED: diphenhydrAMINE Capsule 25 MG CAP PO PRN (11:14)
[2022-06-29] MEDS ORDERED: ONDANSETRON INJ 2 MG/ML 2 ML VIAL IV PRN (11:14)
[2022-06-29] MEDS: oxyCODONE/ACETAMINOPHEN 5mg/325mg TAB PO PRN (19:16)
[2022-06-29] MEDS ORDERED: bisacodyL 5 MG TABEC PO SCH (20:00)
[2022-06-30] MEDS: oxyCODONE/ACETAMINOPHEN 5mg/325mg TAB PO PRN ×2 (05:43→13:49)
[2022-06-30] MEDS: IBUPROFEN 600 MG TAB PO PRN ×2 (05:44→13:49)
--- NOTE | 2022-06-30 05:48 | Obstetrical Progress Note ---
Date of Service June 30, 2022 Assessment & Plan (1) 39 weeks gestation of : (2) Gestational hypertension: Plan s/p POD#2: Vital signs reviewed and WNL, Tmax 37.1 AB+, GBS negative, Rubella immune Encourage ambulation Continue regular diet, treat pain as needed Encourage Discussed discharge plan, D/C today Plan to have incision check/bandage removal in office this thursday Admission and Anticipated Discharge Date Admission Date: June 27, 2022 Supervising Physician Co-Signing Physician Notes Resident Physician Supervision Note: I was present with Dr. Figueroa during the history and exam. I discussed the case with the resident and agree with the findings and plan as documented in the note. Any exceptions or clarifications are listed here: [None] Documented By: Desiree Farah MD, FACOG Subjective Jeanne is a 26 y/o female who is POD #2 following delivery at 40 weeks. Her was complicated by gestational hypertension. She reports feeling well overall this morning. Denies abdominal cramping and pain well managed on analgesics. Voiding without issue. Tolerating meals overnight and able to ambulate some. Endorses passing gas and no bowel movement yet. Has some persistent lochia with improvement this morning. Currently breast feeding. Review of Systems Constitutional: no fever, no chills and no sweats Respiratory: no cough, no dyspnea and no wheezing Cardiovascular: no chest pain, no palpitations and no calf pain Genitourinary: no dysuria Neurologic: no headache(s) Physical Exam Constitutional: WD/WN, vitals as above no acute distress Respiratory: no respiratory distress Auscultation: lungs clear to auscultation bilaterally; no rales, no rhonchi and no wheezes Cardiovascular: RRR, no murmur, no edema Extremities: no calf tenderness and no edema Negative Ramón's sign bilaterally. Gastrointestinal (Abdomen): Inspection/Auscultation: normal bowel sounds Genitourinary: Uterine fundus firm, palpable below the umbilicus. Incision site covered with bandage. Results & Data ([facility]) Vital Signs (Past 12 Hours) Vital Signs Temp Pulse Resp BP Pulse Ox O2 Del Method 06/29/22 23:20 36.9 C 80 18 104/68 06/29/22 19:00 Room Air 06/29/22 19:00 36.9 C 80 18 102/68 98 Room Air Resident Activity Tracking Resident Involvement: Resident Care Provided Care Provided: OB Delivery
[2022-06-30 07:29] LABS: Hematocrit (blood only) 32.9 % (34.1-44.9); Hemoglobin 11.1 g/dl (12.0-16.0)
[2022-06-30] MEDS: FERROUS SULFATE 325 MG TAB PO SCH (07:54)
[2022-06-30] MEDS: PRENATAL VITAMIN 1 TAB PO SCH (07:55)
[2022-06-30] MEDS: SIMETHICONE 80 MG CHEW PO SCH (07:55)
[2022-06-30] MEDS: DOCUSATE SODIUM 100 MG CAP PO SCH (07:55)
[2022-06-30] MEDS ORDERED: bisacodyL 10 MG SUPP PR PRN (14:03)
--- NOTE | 2022-07-01 07:47 | Discharge Summary ---
Date of Service July 01, 2022 Admission HPI Per Admitting Provider 26yo at 39 6/7 wks yoshi presents to L&D for planned repeat bp about 4-6hr from office bp that was elevated. She denies complaints, no storm, visual change, no ruq pain, no epig pain. No worsening swelling. PNC c/b 1. obesity PNL rhpos, ri, gbs neg Admission Exam (Per Admitting) Constitutional WD/WN, vitals as above well developed and well nourished Respiratory normal respiratory effort, lungs clear to auscultation normal respiratory effort Cardiovascular RRR, no murmur, no edema Gastrointestinal (Abdomen) normal bowel sounds, soft, nontender, no hepatosplenomegaly Discharge Data Consultations 06/27/22 20:36 Consult Anesthesiology Stat Procedures Performed Operation Date: 06/28/22 13:00 Actual Procedures p Section in LD - Desiree Farah MD, FACOG Hospital Course (1) 39 weeks gestation of : (2) Gestational hypertension: Plan s/p POD#2: Vital signs reviewed and WNL, Tmax 37.1 AB+, GBS negative, Rubella immune Encourage ambulation Continue regular diet, treat pain as needed Encourage Discussed discharge plan, D/C today Plan to have incision check/bandage removal in office this thursday Supervising Physician Co-Signing Physician Notes Resident Physician Supervision Note: I was present with Dr. Figueroa during the history and exam. I discussed the case with the resident and agree with the findings and plan as documented in the note. Any exceptions or clarifications are listed here: [None] Documented By: Desiree Farah MD, FACOG Coding Level of Care Code None Diagnoses 39 weeks gestation of Z3A.39 Gestational hypertension O13.9
== END 2022-06-30 14:13 | disposition home or self-care (01) | DRG 788 ==
LOC: OPB 18:11 → 4S1 18:12 → 4E2 06-28 17:40

== ENCOUNTER 2024-01-01 07:30 | Inpatient (IN) ==
--- NOTE | 2023-12-16 13:09 | Anesthesiology Consultation ---
Date of Service December 16, 2023 Assessment & Plan (1) Encounter for pre-operative examination: Infectious disease screening: Per assessment on 12/16/23: No known infectious disease contacts or current infectious disease symptoms. No noted recent Covid positive test result. Chart Review Chart Review: data entry operator initiated History Surgery Operation Date: 01/01/24 07:30 Proposed Procedures p Section (Delivery of Baby Through Abdominal Incision) - Haider Grissom MD Height/Weight Height: 5 ft 3 in Weight: 131.542 kg Allergies Allergy/AdvReac Type Severity Reaction Status Date / Time No Known Allergies Allergy Verified 12/16/23 12:44 Medications Home Medications Medication Instructions Recorded Confirmed Last Taken multivitamin 1 tab PO QAM 08/01/21 12/16/23 06/26/22 aspirin 81 mg tablet,delayed 81 mg PO QAM 08/26/23 12/16/23 Unknown release (Adult Aspirin Regimen) acetaminophen 500 mg tablet 500 mg PO Q6H PRN prn 12/16/23 12/16/23 Unknown calcium carbonate 500 mg PO DAILY PRN prn 12/16/23 12/16/23 Unknown Past Medical History Medical History Gestational diabetes no meds Gestational hypertension Obesity complicating SAB (spontaneous ) Hx Varicella vaccination Past Family History Family History Father Hypertension Denies family history of Ovarian cancer Clotting disorder Breast cancer Colorectal cancer Uterine cancer Past Surgical History Surgical History Nausea and vomiting after administration of anesthetic agent vomiting during C section S/P section Social History Smoking Status: Never smoker Do You Dip or Chew Tobacco: No Hx Alcohol Use: No Hx Substance Use: No substance use type: does not use
[2024-01-01] MEDS ORDERED: OXYTOCIN 30 UNITS/NSS 30 UNITS/500 ML BAG IV PRN (08:51)
[2024-01-01] MEDS ORDERED: LIDOCAINE 1% LOCAL 20 ML VIAL INFIL PRN (08:51)
[2024-01-01] MEDS ORDERED: CALCIUM CARBONATE 500 MG CHEWABLE TAB PO PRN (08:51)
[2024-01-01] MEDS: LACTATED RINGER'S 1,000 ML IV PRN (09:00)
--- NOTE | 2024-01-01 09:16 | History & Physical Report ---
Date of Service January 01, 2024 Assessment & Plan (1) Delivery by elective section: Plan: Doing well NST reactive Will proceed with elective rLTCS Admission and Anticipated Discharge Date Admission Date: January 01, 2024 History of Present Illness Primary Care Provider: MATTHEW PCP 28 yo at 39w0d admitted for . Hayes bulb placed yesterday, fell out spontaneously this AM. Denies LEY, CP, SOB, N/V/D, LE pain. GBS pos, RH+, GDM diet controlled, rubella immune, +FM, -LOF, +CTX Allergies Allergy/AdvReac Type Severity Reaction Status Date / Time No Known Allergies Allergy Verified 12/31/23 12:07 Home Medications Medication Instructions Recorded Confirmed Type multivitamin 1 tab PO QAM 08/01/21 12/31/23 History acetaminophen 500 mg tablet 500 mg PO Q6H PRN prn 12/16/23 12/31/23 History calcium carbonate 500 mg PO DAILY PRN prn 12/16/23 12/31/23 History Patient History Medical History Gestational diabetes no meds Gestational hypertension Obesity complicating SAB (spontaneous ) Hx Varicella vaccination Surgical History Nausea and vomiting after administration of anesthetic agent vomiting during C section S/P section Family History Father Hypertension Denies family history of Ovarian cancer Clotting disorder Breast cancer Colorectal cancer Uterine cancer Social History (Updated 12/16/23 @ 12:58 by Bailey Hurley RN) Smoking Status: Never smoker Second Hand Exposure: No; Do You Dip or Chew Tobacco: No; Hx Alcohol Use: No Hx Substance Use: No Preferred Language: Chinese Eligibility Analyst Required: No Beliefs That Will Affect Care: None marital status: marital status details: Jorden Smith (28) [phone] Current Living Situation: Spouse and Family Current Living Situation Comment: lives with spouse, child, dogs current occupational status: employed current occupation: [employer] Feels Safe at Home: Yes Assistive Devices: None OB History : 3 Full term: 1 Premature: 0 Total Number of Induced Abortions: 0 Total Number of Spontaneous Abortions: 1 Ectopics: 0 Multiple births: 0 Number of Living Children: 1 Menstrual History Last menstrual period: Yes Menstrual reliability: definite Flow: normal Menstrual regularity: regular Monthly: Yes Age at menarche: 10 On control pills at conception: No Date of positive home test: 05/06/23 Menstrual history comments: cycles 28-30 days Details: last pap 12/29/[address] Rangel Review of Systems reviewed, per HPI Physical Exam Physical Exam: General: patient resting comfortably, NAD, non-toxic in appearance, answers questions appropriately. Skin: warm, dry, intact HEENT: NC/AT, anicteric sclera, conjunctiva without injection, moist mucus membranes Heart: +S1/S2, regular, no m/r/g Lungs: equal air entry bilaterally, no rales/rhonchi/wheezes Abd: gravid uterus Cervical: per attending Ext: warm, no clubbing/cyanosis or edema Neuro: nonfocal, speech intact, no facial droop, moving all extremities. : FHR baseline 130s-140s, moderate variability, accelerations present, decelerations absent Results & Data Vital Signs (Past 12 Hours) Vital Signs Temp Pulse Resp BP 01/01/24 08:44 98 H 136/87 01/01/24 08:41 20 01/01/24 08:41 36.9 C 20 Supervising Physician Co-Signing Physician Notes Patient seen with resident and agree with the above findings and plan. Resident Activity Tracking Resident Involvement: Resident Care Provided Care Provided: Adult [facility]
--- NOTE | 2024-01-01 09:20 | History & Physical Report ---
Date of Service January 01, 2024 Assessment & Plan (1) Gestational diabetes mellitus (GDM) affecting , antepartum: Plan: Jeanne is a 28-year-old G3, P1 currently at 39 weeks 0 days gestational age presents for scheduled repeat .Reactive NST noted. Consent forms reviewed and signed. (2) Prior complicated by PIH, antepartum: (3) Previous delivery affecting , antepartum: Admission and Anticipated Discharge Date Admission Date: January 01, 2024 History of Present Illness Primary Care Provider: NO PCP Jeanne is a 28-year-old G3, P1 currently at 39 weeks 0 days gestational age presents for scheduled repeat . complicated by: Previous - Repeat at 39 weeks C/S SCHEDULE FOR 01/01/2024 GHTN with prior - ASA 81mg at 12 weeks Obesity (BMI 40 and higher @ beginning of ) 49.8 *Growth US @ 32wks *Weekly NSTs @ 34wks *BMI 40 or above offer delivery by EDC. *BMI 50 or greater scheduled detailed/level II anatomy at [facility] (08/21/23 @ [facility] [place] -Needs views of maxilla, palate, and ventricular septum; EIF noted-cfdna low risk - anatomy complete 09/21 GDM - Declined Dietary *Wkly NSTs @32wks and Twice wkly @36wks - Declining 2x weekly NST *Serial growth US @28wks *Deliver by EDC Suspected LGA - EFW 96%, AC 96% OB Labs: Blood Type AB Positive 05/25/23 Antibody Screen NEGATIVE 05/25/23 Hemoglobin 12.0 g/dl (12.0-16.0) 10/29/23 Hematocrit 36.3 % (37.0-47.0) L 10/29/23 Mean Corpuscular Volume 91.8 fL (80.0-100.0) 05/25/23 Platelet Count 284 K/uL (130-400) 05/25/23 Rubella IgG Antibody Immune (Immune) 05/25/23 Rapid Plasma Reagin Nonreactive (Nonreactive) 05/25/23 Hepatitis B Surface Antigen. NON-REACTIVE (NON-REACTIVE) 05/25/23 Hepatitis C Antibody (EIA) NON-REACTIVE (NON-REACTIVE) 05/25/23 HIV (1&2) Ag and Ab Confirmation NON-REACTIVE (NON-REACTIVE) 05/25/23 Glucose 1 Hour 50 gm Load 167 mg/dl (70-130) H 10/29/23 Maternal Serum Alpha Fetoprotein 26.6 ng/mL 01/15/22 OB Optional Labs: Chlamydia trachomatis RNA Not Detected (NotDetected) 05/25/23 Neisseria gonorrhoeae RNA Not Detected (NotDetected) 05/25/23 Alpha Fetoprotein Triple Screen SEE NOTE 01/15/22 Labs Reviewed: cf/sma-negative prior --mln cfdna-low risk--mln Allergies Allergy/AdvReac Type Severity Reaction Status Date / Time No Known Allergies Allergy Verified 12/31/23 12:07 Home Medications Medication Instructions Recorded Confirmed Type multivitamin 1 tab PO QAM 08/01/21 12/31/23 History acetaminophen 500 mg tablet 500 mg PO Q6H PRN prn 12/16/23 12/31/23 History calcium carbonate 500 mg PO DAILY PRN prn 12/16/23 12/31/23 History Patient History Medical History Gestational diabetes no meds Gestational hypertension Obesity complicating SAB (spontaneous ) Hx Varicella vaccination Surgical History Nausea and vomiting after administration of anesthetic agent vomiting during C section S/P section Family History Father Hypertension Denies family history of Ovarian cancer Clotting disorder Breast cancer Colorectal cancer Uterine cancer Social History (Updated 12/16/23 @ 12:58 by Bailey Hurley RN) Smoking Status: Never smoker Second Hand Exposure: No; Do You Dip or Chew Tobacco: No; Tobacco Cessation Education Requested by Patient: No Hx Alcohol Use: No Hx Substance Use: No Preferred Language: Solomon Islander Entry Level Project Coordinator Required: No Beliefs That Will Affect Care: None marital status: marital status details: Jorden Smith (28) [phone] Current Living Situation: Spouse and Family Current Living Situation Comment: lives with spouse, child, dogs current occupational status: employed current occupation: [employer] Other Information That Helps Us Care for You: No Feels Safe at Home: Yes Safety Concerns: Feels Safe At This Time Assistive Devices: None Physical Exam Genitourinary: OB Exam Monitor Tracing: + external FHT monitor used, + external uterine monitor used, + category I and + normal FHT variability NST reactive Results & Data Vital Signs (Past 12 Hours) Vital Signs Temp Pulse Resp BP 01/01/24 08:44 98 H 136/87 01/01/24 08:41 20 01/01/24 08:41 36.9 C 20 Coding Level of Care Code None Diagnoses Gestational diabetes mellitus (GDM) affecting , antepartum O24.419 Prior complicated by PIH, antepartum O09.899 Previous delivery affecting , antepartum O34.219
[2024-01-01 09:41] LABS: Hematocrit (blood only) 34.1 % (37.0-47.0); Hemoglobin 11.5 g/dl (12.0-16.0); Mean Corpuscular Hemoglobin 30.2 pg (25.0-34.0); Mean Corpuscular Hgb Conc 33.7 g/dL (32.0-36.0); Mean Corpuscular Volume 89.5 fL (80.0-100.0); Mean Platelet Volume 11.5 fL (9.4-12.4); Platelet Count 282 K/uL (130-400); RDW Coefficient of Variation 12.8 % (11.5-14.5); RDW Standard Deviation 41.7 fL (36.4-46.3); Red Blood Count 3.81 M/uL (4.20-5.40); White Blood Count 8.99 K/ul (4.8-10.8)
[2024-01-01] MEDS ORDERED: MoRPHine SULFATE PF 1 MG/ML 10 ML AMP/VIAL ONE (10:19)
[2024-01-01] MEDS: CITRIC ACID/SODIUM CITRATE 15 ML UDC ONE (10:27)
[2024-01-01] MEDS: ceFAZolin 3,000 MG in DEXTROSE 5% 50 ML IV ONE (10:28)
[2024-01-01] MEDS ORDERED: ONDANSETRON INJ 2 MG/ML 2 ML VIAL ONE ×2 (11:15)
[2024-01-01] MEDS ORDERED: PHENYLEPHRINE 100MCG/ML 10ML SYR IV ONE (11:15)
[2024-01-01] MEDS ORDERED: PROMETHAZINE HCL 25 MG in SODIUM CHLORIDE 0.9% 50 ML IV PRN (11:21)
[2024-01-01] MEDS ORDERED: HYDROCORTISONE ACETATE 25 MG SUPP PR PRN (11:21)
[2024-01-01] MEDS ORDERED: MAGNESIUM HYDROXIDE SUSP 30 ML UDC PO PRN (11:21)
[2024-01-01] MEDS ORDERED: oxyCODONE/ACETAMINOPHEN 5mg/325mg TAB PO PRN (11:21)
[2024-01-01] MEDS ORDERED: MEPERIDINE HCL 50 MG/ML CARP IV PRN (11:21)
[2024-01-01] MEDS ORDERED: diphenhydrAMINE 50 MG/ML VIAL IV PRN ×2 (11:21→20:41)
[2024-01-01] MEDS ORDERED: SENNA 8.6 MG TAB PO PRN (11:21)
[2024-01-01] MEDS ORDERED: BENZOCAINE 20% SPRY 85 APPLN/85 GM CAN EXT PRN (11:21)
[2024-01-01] MEDS ORDERED: OXYTOCIN 10 UNITS/ML VIAL ONE (11:28)
--- NOTE | 2024-01-01 11:41 | Operative Report ---
PG Post Operative Report Pre & Post Diagnosis Operation Date: 01/01/24 09:50 Pre-Op Diagnosis: 1. Gestational diabetes mellitus (GDM) affecting . 2. 39 weeks gestation. 3. Scheduled repeat . Post-Op Diagnosis: 1. Gestational diabetes mellitus (GDM) affecting . 2. 39 weeks gestation. 3. Scheduled repeat . 4. Delivery of Infant Boy on 01/01/2024 at 1059 via C/S I identified the patient and participated in the time-out.: Yes Procedure Operation Date: 01/01/24 09:50 Repeat Surgeon Haider Grissom MD Heel Shaper Dr. Jacques Estimated Blood Loss 700 Findings Consistent with Post-Op Diagnosis Blood loss per QBL Specimens None Description of Procedure Patient was taken to the operating room and was proper identified. She was prepped and draped in in the normal sterile fashion with a Betadine splash. A preprocedural timeout was performed. A Pfannenstiel incision was made with a knife. This was carried down to the underlying fascia with the knife. The fascia was entered with a knife and bluntly dissected midline was then entered and placed on stretch to provide adequate room for delivery. Bladder blade was inserted and low transverse uterine incision was made with a knife. Uterine cavity was then entered bluntly and placed on stretch to provide adequate room for delivery. Head of the was delivered without difficulty followed by body and shoulders. Cord was double clamped and cut taken of the waiting nursery staff for evaluation. Cord blood and cord segment obtained. Attention was then turned delivery the placenta was delivered intact three- vessel cord gentle cord traction. Uterus was then exteriorized and several passes were made to remove any remaining membranes with a dry lap. Uterus was wrapped in a wet lap and the hysterotomy was reapproximated with 0 Vicryl continuous running lock stitch. Second imbricating of 0 Vicryl and continuous running stitch was performed. Excellent hemostasis noted. Posterior cul-de-sac cleaned of clots and debris's. Uterus returned maternal abdomen. Right left paracolic gutters cleaned of clots and debris's. Hysterotomy we inspected and noted to be hemostatic. Fascia subcutaneous and muscle layers were inspected noted to be hemostatic. Fascia was reapproximated with 0 Vicryl and continuous running stitch. Subcutaneous layer was reapproximated with 2-0 plain with continuous running stitch. Skin was reapproximated with 3-0 Vicryl continuous subcuticular stitch. Needle sponge and instrument counts were correct at the completion of the case. Both mother and stable in the immediate postdelivery period. I attest to the content of the Intraoperative Record and any orders documented therein. Any exceptions are noted below. OB Procedure charges OB Charges [id number]
[2024-01-01] MEDS ORDERED: PENICILLIN GK 3 MU in DEXTROSE 5% 100 ML IV PRN (11:51)
[2024-01-01] MEDS: DIPHTHER/TETAN/PERTUS Vaccine (Tdap, Adol/Adult) 0.5mL IM ONE (11:58)
[2024-01-01] MEDS: ONDANSETRON INJ 2 MG/ML 2 ML VIAL IV PRN (11:58)
[2024-01-01] MEDS: KETOROLAC 30 MG/ML VIAL IV PRN ×2 (12:06→22:58)
[2024-01-01] MEDS: OXYTOCIN 20 UNITS/LR 1,002 ML IV SCH (12:12)
[2024-01-01] MEDS: SIMETHICONE 80 MG CHEW PO SCH (14:26)
[2024-01-01] MEDS: LACTATED RINGER'S 1,000 ML IV SCH (14:26)
[2024-01-01] MEDS: diphenhydrAMINE Capsule 25 MG CAP PO PRN (14:52)
[2024-01-01] MEDS ORDERED: SIMETHICONE 80 MG CHEW PO PRN (15:04)
[2024-01-01] MEDS ORDERED: IBUPROFEN 600 MG TAB PO PRN (15:04)
[2024-01-01] MEDS ORDERED: ACETAMINOPHEN 325 MG TAB PO PRN (15:04)
[2024-01-01] MEDS ORDERED: ONDANSETRON INJ 2 MG/ML 2 ML VIAL IV PRN (15:04)
[2024-01-01 15:15] LABS: Hematocrit (blood only) 34.9 % (37.0-47.0); Hemoglobin 11.4 g/dl (12.0-16.0)
--- NOTE | 2024-01-01 15:54 | Anesthesiology Progress Note ---
Date of Service January 01, 2024 Anesthesia Post Procedure Vital Signs Vital Signs: Temp Pulse Resp BP Pulse Ox 01/01/24 15:51 94 01/01/24 15:51 72 01/01/24 15:50 72 01/01/24 15:50 111/61 01/01/24 15:46 98 01/01/24 15:46 87 01/01/24 15:45 77 01/01/24 15:45 112/59 L 01/01/24 15:41 97 01/01/24 15:41 70 01/01/24 15:40 80 01/01/24 15:40 116/66 01/01/24 15:36 96 01/01/24 15:36 77 01/01/24 15:35 75 01/01/24 15:35 116/63 01/01/24 15:31 97 01/01/24 15:31 78 01/01/24 15:30 70 01/01/24 15:30 111/59 L 01/01/24 15:26 96 01/01/24 15:26 71 01/01/24 15:25 75 01/01/24 15:25 108/56 L 01/01/24 15:21 97 01/01/24 15:21 75 01/01/24 15:20 73 01/01/24 15:20 113/55 L 01/01/24 15:16 97 01/01/24 15:16 72 01/01/24 15:15 96 H 01/01/24 15:15 122/59 L 01/01/24 15:11 100 01/01/24 15:11 76 01/01/24 15:10 78 01/01/24 15:10 125/64 01/01/24 15:06 100 01/01/24 15:06 80 01/01/24 15:05 73 01/01/24 15:05 119/60 01/01/24 15:01 97 01/01/24 15:01 73 01/01/24 15:00 75 01/01/24 15:00 108/69 01/01/24 14:56 100 01/01/24 14:56 77 01/01/24 14:55 70 01/01/24 14:55 128/65 01/01/24 14:51 99 01/01/24 14:51 81 01/01/24 14:50 72 01/01/24 14:50 135/67 01/01/24 14:46 98 01/01/24 14:46 69 01/01/24 14:45 80 01/01/24 14:45 124/57 L 01/01/24 14:41 98 01/01/24 14:41 73 01/01/24 14:40 65 01/01/24 14:40 120/58 L 01/01/24 14:36 98 01/01/24 14:36 71 01/01/24 14:34 70 01/01/24 14:34 125/68 01/01/24 14:31 99 01/01/24 14:31 71 01/01/24 14:30 68 01/01/24 14:30 114/57 L 01/01/24 14:26 66 96 01/01/24 14:25 75 109/59 L 92 01/01/24 14:21 77 99 01/01/24 14:20 65 124/62 01/01/24 14:16 55 L 97 01/01/24 14:15 58 L 128/63 01/01/24 14:11 61 98 01/01/24 14:10 69 128/62 01/01/24 14:06 36.6 C 20 01/01/24 14:06 68 100 01/01/24 14:04 66 126/60 01/01/24 14:02 61 125/63 01/01/24 14:01 59 L 100 01/01/24 14:00 68 133/68 01/01/24 13:59 70 92 01/01/24 13:58 70 113/59 L 01/01/24 13:56 75 100 01/01/24 13:54 65 93/55 L 01/01/24 13:52 76 115/56 L 01/01/24 13:51 69 99 01/01/24 13:50 67 103/57 L 01/01/24 13:48 68 90/52 L 01/01/24 13:46 100 01/01/24 13:46 64 01/01/24 13:46 60 104/55 L 01/01/24 13:44 61 108/58 L 01/01/24 13:42 64 110/56 L 01/01/24 13:41 95 01/01/24 13:41 76 01/01/24 13:41 88 113/50 L 01/01/24 13:40 69 87 L 01/01/24 13:38 62 114/61 01/01/24 13:36 20 01/01/24 13:36 100 01/01/24 13:36 56 L 01/01/24 13:36 57 L 108/59 L 01/01/24 13:32 70 73/47 L 01/01/24 13:31 65 100 01/01/24 13:26 98 01/01/24 13:26 66 01/01/24 13:26 69 114/68 01/01/24 13:21 71 98 01/01/24 13:16 99 01/01/24 13:16 58 L 01/01/24 13:16 64 114/69 01/01/24 13:11 65 99 01/01/24 13:06 20 01/01/24 13:06 99 01/01/24 13:06 64 01/01/24 13:06 61 116/72 01/01/24 13:01 66 100 01/01/24 12:56 18 01/01/24 12:56 68 20 100 01/01/24 12:56 20 01/01/24 12:56 96 01/01/24 12:56 74 01/01/24 12:56 62 100/57 L 01/01/24 12:51 65 98 01/01/24 12:46 20 01/01/24 12:46 64 96/51 L 99 01/01/24 12:42 74 92 01/01/24 12:41 72 100 01/01/24 12:38 65 85/46 L 01/01/24 12:36 20 01/01/24 12:36 99 01/01/24 12:36 67 01/01/24 12:36 64 95/52 L 01/01/24 12:31 66 99 01/01/24 12:26 18 01/01/24 12:26 100 01/01/24 12:26 70 01/01/24 12:26 71 101/56 L 01/01/24 12:21 61 99 01/01/24 12:16 20 01/01/24 12:16 71 109/54 L 82 L 01/01/24 12:15 58 L 79 L 01/01/24 12:10 60 100 01/01/24 12:06 20 01/01/24 12:06 60 112/57 L 01/01/24 12:05 63 100 01/01/24 12:03 57 L 110/54 L 01/01/24 12:00 61 100 01/01/24 11:56 36.9 C 62 20 91/44 L 100 01/01/24 11:56 62 91/44 L 01/01/24 11:55 58 L 100 01/01/24 11:50 70 95 01/01/24 11:49 76 93 01/01/24 11:46 68 104/51 L 01/01/24 11:45 66 100 01/01/24 11:43 65 93 01/01/24 11:40 67 99 01/01/24 11:36 65 117/57 L 01/01/24 11:35 63 100 01/01/24 09:16 36.9 C 98 H 20 136/87 01/01/24 08:44 98 H 136/87 01/01/24 08:41 20 01/01/24 08:41 36.9 C 20 Pain Intensity Bilateral Anterior Abdomen: Pain Intensity: 2 Transfer of Care Handoff Completed per policy Notes Mental Status: alert / awake / arousable and participated in evaluation Nausea / Vomiting: adequately controlled Pain: adequately controlled Airway Patency, RR, SpO2: stable & adequate BP & HR: stable & adequate Hydration State: stable & adequate Neuraxial Anesthesia: was administered and sensory block is resolving Anesthetic Complications: no major complications apparent and Pt Satisfied with anesthetic care
[2024-01-01] MEDS ORDERED: ePHEDrine sulfate 50 MG/ML AMP IV PRN (20:41)
[2024-01-01] MEDS ORDERED: NALBUPHINE HCL 5 MG in SYRINGE 0 ML IV PRN (20:41)
[2024-01-01] MEDS ORDERED: NALOXONE HCL 0.4 MG/1 ML VIAL/CARP IV PRN (20:41)
[2024-01-01] MEDS ORDERED: NALOXONE HCL 0.08 MG in SYRINGE 1.8 ML IV PRN (20:41)
[2024-01-01] MEDS ORDERED: NALOXONE HCL 1 MG in SODIUM CHLORIDE 0.9% 1,000 ML IV PRN (20:41)
[2024-01-01] MEDS ORDERED: LACTATED RINGER'S 500 ML IV PRN (20:41)
[2024-01-01] MEDS ORDERED: DC INTRASPINAL MORPHINE SCH (20:45)
[2024-01-01] MEDS ORDERED: NO NARCOTICS OR SEDATIVES SCH (20:45)
[2024-01-01] MEDS: DOCUSATE SODIUM 100 MG CAP PO SCH (22:32)
[2024-01-01] MEDS: MoRPHine SULFATE PF 1 MG/ML 10 ML AMP/VIAL INT SPINAL ONE (22:51)
[2024-01-01] MEDS: SODIUM CHLORIDE 0.9% 1,000 ML IV SCH (22:51)
[2024-01-01] MEDS: PENICILLIN GK 6 MU in DEXTROSE 5% 250 ML IV STA (22:53)
[2024-01-02 07:09] LABS: Basophils # (auto) 0.03 K/uL (0.00-0.20); Basophils % (auto) 0.3 %; Eosinophils # (auto) 0.15 K/uL (0.00-0.50); Eosinophils % (auto) 1.5 %; Hemoglobin 9.6 g/dl (12.0-16.0); Immature Granulocytes # (auto) 0.05 K/uL (0.01-0.20); Immature Granulocytes % (auto) 0.5 %; Lymphocytes # (auto) 1.76 K/uL (1.20-3.40); Lymphocytes % (auto) 17.7 %; Mean Corpuscular Hemoglobin 30.3 pg (25.0-34.0); Mean Corpuscular Hgb Conc 33.1 g/dL (32.0-36.0); Mean Corpuscular Volume 91.5 fL (80.0-100.0); Mean Platelet Volume 11.3 fL (9.4-12.4); Monocytes # (auto) 0.77 K/uL (0.11-0.59); Monocytes % (auto) 7.8 %; Neutrophils # (auto) 7.17 K/uL (1.40-6.50); Neutrophils % (auto) 72.2 %; Platelet Count 214 K/uL (130-400); RDW Coefficient of Variation 12.8 % (11.5-14.5); RDW Standard Deviation 42.2 fL (36.4-46.3); Red Blood Count 3.17 M/uL (4.20-5.40); White Blood Count 9.93 K/ul (4.8-10.8)
--- NOTE | 2024-01-02 07:15 | Obstetrical Progress Note ---
Date of Service January 02, 2024 Assessment & Plan Admission and Anticipated Discharge Date Admission Date: January 01, 2024 Supervising Physician Co-Signing Physician Notes Resident Physician Supervision Note: I interviewed and examined the patient. Discussed with Dr. Hernandez and agree with findings and plan as documented in the note. Any exceptions or clarifications are listed here: ANASTACIA dressing dry and intact on exam. Will leave ANASTACIA dressing in place for 1 week. Documented By: Daniella Overton MD, FACOG Subjective 28 yo post op day 1 s/p Ambulation: not yet ambulating Voiding: shaver out Passing Gas:: Yes Diet Tolerance:: regular diet Lochia:: Small Current Pain Level: minimal Resting comfortably this AM in NAD. Denies LEY, CP, SOB, N/V/D, LE pain/swelling. Review of Systems Review of Systems: reviewed, per HPI Physical Exam Physical Exam: General: patient resting comfortably, NAD, non-toxic in appearance, answers questions appropriately. Skin: warm, dry, intact HEENT: NC/AT, anicteric sclera, conjunctiva without injection, moist mucus membranes. Heart: extremities well perfused Lungs: no increased WOB Abd: caesarean incision per attending. Ext: warm, no clubbing/cyanosis or edema, Ramón's neg. Neuro: nonfocal, speech intact, no facial droop, moving all extremities. Results & Data Vital Signs (Past 12 Hours) Vital Signs Temp Pulse Resp BP Pulse Ox O2 Del Method 01/02/24 03:24 36.8 C 88 20 98/63 L 97 Room Air 01/02/24 02:30 18 97 01/02/24 01:30 18 96 01/02/24 00:30 20 96 01/01/24 23:30 18 97 01/01/24 22:46 36.9 C 86 20 131/82 96 Room Air 01/01/24 21:30 20 95 01/01/24 19:43 36.8 C 74 20 97/62 L 97 Room Air 01/01/24 19:15 20 97 Resident Activity Tracking Resident Involvement: Resident Care Provided Care Provided: Adult Hospital Medicine
[2024-01-02] MEDS: IBUPROFEN 600 MG TAB PO PRN (07:43)
[2024-01-02] MEDS: PRENATAL VITAMIN 1 TAB PO SCH (07:44)
[2024-01-02] MEDS: FERROUS SULFATE 325 MG TAB PO SCH (07:44)
[2024-01-02] MEDS: bisacodyL 5 MG TABEC PO SCH (20:36)
[2024-01-03 06:41] LABS: Hematocrit (blood only) 29.3 % (37.0-47.0); Hemoglobin 9.7 g/dl (12.0-16.0)
[2024-01-03] MEDS: ACETAMINOPHEN 325 MG TAB PO PRN (07:58)
--- NOTE | 2024-01-03 08:19 | Obstetrical Progress Note ---
Date of Service January 03, 2024 Assessment & Plan (1) Delivery by elective section: Day 2 status post repeat section. Doing well. stable for discharge if preferred. (2) Encounter for care and examination after delivery: Subjective Ambulation: ambulating normally Voiding: no voiding problems Passing Gas:: Yes Diet Tolerance:: regular diet Lochia:: Moderate Feeding Type:: breast feeding Physical Exam Constitutional WD/WN, vitals as above Respiratory normal respiratory effort; no respiratory distress and no labored breathing Gastrointestinal (Abdomen) Inspection/Auscultation: abdomen normal to inspection; abdomen not distended Percussion/Palpation: abdomen soft; abdomen nontender, no guarding and abdomen not rigid ANASTACIA dressing in place Genitourinary OB Exam Abdomen: + fundal height Fundus: + firm and + relation to umbilicus (Below); not tender or not boggy Results & Data Vital Signs (Past 12 Hours) Vital Signs Temp Pulse Resp BP Pulse Ox O2 Del Method 01/03/24 07:38 36.6 C 86 20 116/73 97 Room Air 01/02/24 23:25 36.7 C 87 16 122/71 97 Room Air
[2024-01-03] MEDS ORDERED: bisacodyL 10 MG SUPP PR PRN (11:21)
== END 2024-01-03 12:50 | disposition home or self-care (01) | DRG 788 ==
LOC: EDSTATUS 07:30 → 4S1 07:56 → 1E 09:33 → 4E2 16:47